=== PATIENT | female | born 1960 | race American Indian/Alaskan Native ===

== ENCOUNTER 2020-07-04 14:38 | Inpatient (IN) | payer SELFPAY ==
--- NOTE | 2020-07-04 15:34 | Emergency Department Report ---
Blank Doc - Documentation Documentation: 59-year-old female that presents with trip and fall with a lac to scalp area. Exam: Cervical spinal tenderness with lac to scalp. This initial assessment/diagnostic orders/clinical plan/treatment(s) is/are subject to change based on patient's health status, clinical progression and re- assessment by fellow clinical providers in the ED. Further treatment and workup at subsequent clinical providers discretion. Patient/guardians urged not to elope from the ED as their condition may be serious if not clinically assessed and managed. Initial orders include: 1- Patient sent to [facility] for further evaluation and treatment 2- CT head/neck 3- cervical collar
--- NOTE | 2020-07-04 16:12 | Cat Scan Report ---
CT head/brain wo con INDICATION: Headache after fall. TECHNIQUE: Routine CT head without contrast. All CT scans at this location are performed using CT dose reduction for ALARA by means of automated exposure control. COMPARISON: None. FINDINGS: BRAIN / INTRACRANIAL CONTENTS: No acute hemorrhage, brain edema, mass effect, or hydrocephalus. Mala l walker-white differentiation. No chronic infarct or focal atrophy. Normal brain volume and ventricula r/sulcal size for age. CALVARIUM/SKULL BASE/CRANIOCERVICAL JUNCTION: No evidence of fracture. ORBITS: No significant abnormality of visualized orbits. SINUSES / MASTOIDS: No significant abnormality of visualized sinuses and mastoid air cells. ADDITIONAL FINDINGS: There is an extrarenal scalp hematoma in the left frontoparietal region. IMPRESSION: 1. No acute post-traumatic intracranial abnormality. Signer Name: Usman Nicole MD Signed: 07/04/2020 4:08 PM Workstation Name: [id number]
--- NOTE | 2020-07-04 16:24 | Cat Scan Report ---
CT CERVICAL SPINE: 07/04/2020 INDICATION / CLINICAL INFORMATION: headache/cervical spine pain s/p fall. COMPARISON: None available. FINDINGS: CT images of the cervical spine were obtained. Images are evaluated in the axial, coronal, and sagitt al planes. There is a fracture of the right lateral mass of the C6 vertebra, and probable fracture line through the right transverse process at C7. These abnormalities are best seen on sagittal images 22-26 and a xial images 41-50. This is associated with slight anterior subluxation of the right C5-6 facet joint, with subtle anterolisthesis present at the C5-6 level in the midline. Vertebral body height is well preserved. Cervical vertebra are otherwise intact. CRANIOCERVICAL JUNCTION: Unremarkable. PARASPINAL STRUCTURES: Unremarkable Incidental note is made of a 2.4 cm right thyroid nodule. IMPRESSION: Right lateral mass fracture at C6 as detailed above. Subtle fracture of right C7 transverse process. INCIDENTAL THYROID NODULE RECOMMENDATIONS Nonpalpable nodules detected on US or other anatomic imaging studies are termed incidentally discover ed nodules or incidentalomas. Nonpalpable nodules have the same risk of malignancy as palpable nodule s with the same size. Generally, only nodules >1 cm should be evaluated, since they have a greater po tential to be clinically significant cancers. (AARON, 2009). Follow up for incidental thyroid nodules <1 cm is not recommended. In patients <35 years with an incidental thyroid nodule detected on CT, MRI, or extrathyroidal ultras ound, dedicated thyroid ultrasound is recommended if the nodule is 1 cm, has no suspicious imaging fe atures, and if the patient has normal life expectancy. In patients 35 years with an incidental thyroid nodule detected on CT, MRI, or extrathyroidal ultraso und, dedicated thyroid ultrasound is recommended if the nodule is 1.5 cm, has no suspicious imaging f eatures, and if the patient has normal life expectancy. All CT scans at this location are performed using dose reduction to ALARA by means of automated expos ure control. Signer Name: Se Paul MD Signed: 07/04/2020 4:20 PM Workstation Name: [id number]
--- NOTE | 2020-07-04 20:26 | Emergency Department Report ---
HPI - General Chief Complaint: Fall Time Seen by Provider: 07/04/20 15:33 - HPI HPI: Room 36 The patient is a 59-year-old female present with a chief complaint of pain after fall. The patient states this morning at 07:30 she missed a step and fell down 6 steps striking her head as she fell to the ground. Patient denies loss of consciousness but complains of pain to the calvarium where she has a laceration neck pain right shoulder and right knee pain. Patient states since she has been in the emergency department she developed some tingling in the right upper extremity but no weakness. ED Past Medical Hx - Past Medical History Previous Medical History?: No - Surgical History Past Surgical History?: No - Family History Family history: no significant - Social History Smoking Status: Never Smoker Substance Use Type: None (Denies illicit drug use) - Medications Home Medications: Home Medications Medication Instructions Recorded Confirmed Last Taken Type Cyclobenzaprine [Flexeril] 10 mg PO TID PRN #15 tablet 04/28/16 Unknown Rx Ibuprofen [Motrin] 800 mg PO Q8HR PRN #15 tablet 04/28/16 Unknown Rx ED Review of Systems ROS: Stated complaint: FALL, OPEN WOUND TO HEAD, NECK AND SHOULDER PAIN Other details as noted in HPI Constitutional: no symptoms reported Eyes: denies: eye pain ENT: denies: throat pain Respiratory: no symptoms reported Cardiovascular: denies: chest pain Endocrine: no symptoms reported Gastrointestinal: denies: abdominal pain Musculoskeletal: arthralgia Skin: other (Laceration to scalp) Neurological: headache Physical Exam - Physical Exam Vital Signs: Vital Signs 07/04/20 15:35 Temperature 98 F Pulse Rate 68 Respiratory 16 Rate Blood Pressure 144/67 [Right] O2 Sat by Pulse 98 Oximetry Physical Exam: GENERAL: The patient is well-developed well-nourished female sitting in chair with cervical collar in place not appearing to be in acute distress HEENT: Normocephalic. Atraumatic. Approximately 3 cm laceration to the calvarium. Hemostatic. Patient has moist mucous membranes. NECK: Supple. No cervical tenderness to palpation CHEST/LUNGS: There is no respiratory distress noted. HEART/CARDIOVASCULAR: Regular. There is no tachycardia. SKIN: There is an approximate 3 cm laceration to the calvarium. Hemostatic. There is no diaphoresis. NEURO: The patient is awake, alert, and oriented. The patient is cooperative. The patient has no focal neurologic deficits. The patient has normal speech. Radial, median and ulnar nerve motor function intact. MUSCULOSKELETAL: There is no evidence of acute injury. ED Course Vital Signs 07/04/20 15:35 Temperature 98 F Pulse Rate 68 Respiratory 16 Rate Blood Pressure 144/67 [Right] O2 Sat by Pulse 98 Oximetry - Consultations Consultation #1: 07/04/20 20:23 Neurosurgery paged ED Medical Decision Making - Lab Data Result diagrams: 07/04/20 20:50 07/04/20 20:50 - Radiology Data Radiology results: pending (CTA neck), report reviewed (CT head, CT cervical spine, bilateral knee x-ray), image reviewed (CT head, CT cervical spine, bilateral knee x-ray) interpreted by me: Bilateral knee x-rays-no acute fractures, no dislocations. No foreign body seen Right shoulder x-ray-no acute fracture, no dislocation. No foreign body seen [facility] [address] [place] [address] Cat Scan Report Signed Patient: ENOC MOSELEY MR#: [id number] : Acct:[id number] Age/Sex: 59 / F ADM Date: 07/04/20 Loc: ED Attending Dr: Ordering Physician: JOSE ERICKSON NP Date of Service: 07/04/20 Procedure(s): CT cervical spine wo con Accession Number(s): [id number] cc: JOSE ERICKSON NP CT CERVICAL SPINE: 07/04/2020 INDICATION / CLINICAL INFORMATION: headache/cervical spine pain s/p fall. COMPARISON: None available. FINDINGS: CT images of the cervical spine were obtained. Images are evaluated in the axial, coronal, and sagittal planes. There is a fracture of the right lateral mass of the C6 vertebra, and probable fracture line through the right transverse process at C7. These abnormalities are best seen on sagittal images 22-26 and axial images 41-50. This is associated with slight anterior subluxation of the right C5-6 facet joint, with subtle anterolisthesis present at the C5-6 level in the midline. Vertebral body height is well preserved. Cervical vertebra are otherwise intact. CRANIOCERVICAL JUNCTION: Unremarkable. PARASPINAL STRUCTURES: Unremarkable Incidental note is made of a 2.4 cm right thyroid nodule. IMPRESSION: Right lateral mass fracture at C6 as detailed above. Subtle fracture of right C7 transverse process. INCIDENTAL THYROID NODULE RECOMMENDATIONS Nonpalpable nodules detected on US or other anatomic imaging studies are termed incidentally discovered nodules or incidentalomas. Nonpalpable nodules have the same risk of malignancy as palpable nodules with the same size. Generally, only nodules >1 cm should be evaluated, since they have a greater potential to be clinically significant cancers. (AARON, 2009). Follow up for incidental thyroid nodules <1 cm is not recommended. In patients <35 years with an incidental thyroid nodule detected on CT, MRI, or extrathyroidal ultrasound, dedicated thyroid ultrasound is recommended if the nodule is 1 cm, has no suspicious andreas ging features, and if the patient has normal life expectancy. In patients 35 years with an incidental thyroid nodule detected on CT, MRI, or extrathyroidal ultrasound, dedicated thyroid ultrasound is recommended if the nodule is 1.5 cm, has no suspicious imaging features, and if the patient has normal life expectancy. All CT scans at this location are performed using dose reduction to ALARA by means of automated exposure control. Signer Name: Se Paul MD Signed: 07/04/2020 4:20 PM Workstation Name: [id number] Transcribed By: AO Dictated By: Se Paul MD Electronically Authenticated By: Se Paul MD Signed Date/Time: 07/04/20 162 DD/ 161 TD/TT: [facility] [address] [place] [address] XRay Report Signed Patient: ENOC MOSELEY MR#: [id number] : 1960 Acct:[id number] Age/Sex: 59 / F ADM Date: 07/04/20 Loc: ED Attending Dr: Ordering Physician: MEME CARRINGTON MD Date of Service: 07/04/20 Procedure(s): XR shoulder 2+V RT Accession Number(s): [id number] cc: MEME CARRINGTON MD Fluoro Time In Minutes: RIGHT SHOULDER 3 VIEW(S) INDICATION / CLINICAL INFORMATION: MAIN COMPARISON: None available. FINDINGS: BONES / JOINT(S): Double density along the humeral head with slight cortical step off at the inferomedial humeral head. Acute nondisplaced fracture not excluded. Consider further evaluation as warranted. Moderate degenerative change. No dislocation. SOFT TISSUES: No significant abnormality. ADDITIONAL FINDINGS: None. Signer Name: Stacia Harrison MD Signed: 07/04/2020 9:47 PM Workstation Name: [id number] Transcribed By: Dictated By: STACIA HARRISON III Electronically Authenticated By: STACIA HARRISON III Signed Date/Time: 07/04/202146 DD/ 45 TD/TT: [facility] [address] [place] [address] XRay Report Signed Patient: ENOC MOSELEY MR#: [id number] : 1960 Acct:[id number] Age/Sex: 59 / F ADM Date: 07/04/20 Loc: ED Attending Dr: Ordering Physician: MEME CARRINGTON MD Date of Service: 07/04/20 Procedure(s): XR knee BILAT 1-2V Accession Number(s): [id number] cc: MEME CARRINGTON MD Fluoro Time In Minutes: BILATERAL KNEE 4 VIEW(S) INDICATION / CLINICAL INFORMATION: MAIN COMPARISON: None available. FINDINGS: BONES / JOINT(S): No acute fracture or subluxation. Tricompartmental degenerative change, bilaterally. Marginal osteophytosis and mild joint space narrowing. No significant effusion in either knee. SOFT TISSUES: No significant abnormality. ADDITIONAL FINDINGS: None. Signer Name: Stacia Harrison MD Signed: 07/04/2020 9:48 PM Workstation Name: [id number] Transcribed By: Dictated By: STACIA HARRISON III Electronically Authenticated By: STACIA HARRISON III Signed Date/Time: 07/04/202147 DD/ 46 TD/TT: - Differential Diagnosis Cervical fracture Critical care attestation.: If time is entered above; I have spent that time in minutes in the direct care of this critically ill patient, excluding procedure time. ED Disposition Clinical Impression: Cervical vertebral fracture, Scalp laceration Disposition: OP ADMIT IP TO THIS HOSP Is pt being admited?: Yes Does the pt Need Aspirin: No Condition: Stable Referrals: PRIMARY CARE, [Primary Care Provider] - 3-5 Days Time of Disposition: 22:47 (Hospitalist notified (Dr Ibarra))
[2020-07-04] MEDS ORDERED: DIPHtheria,PERTUSSIS(ACELL),TETANUS VACCINE/PF 0.5 ML VIAL IM ONE (20:46)
[2020-07-04] MEDS ORDERED: ONDANSETRON 4 MG/2 ML INJ IV ONE (20:46)
[2020-07-04] MEDS ORDERED: fentaNYL 100 MCG/2 ML INJ IV ONE (20:46)
[2020-07-04 21:10] LABS: Basophils # (Auto) 0.1 K/mm3 (0.0-0.1); Basophils % (Auto) 1.1 % (0.0-1.8); Eosinophils # (Auto) 0.1 K/mm3 (0.0-0.4); Eosinophils % (Auto) 0.6 % (0.0-4.3); Hematocrit 39.3 % (30.3-42.9); Hemoglobin 12.9 gm/dl (10.1-14.3); Lymphocytes # (Auto) 2.7 K/mm3 (1.2-5.4); Mean Corpuscular HGB Conc 33 % (30-34); Mean Corpuscular Volume 96 fl (79-97); Monocytes # (Auto) 0.7 K/mm3 (0.0-0.8); Platelet Count 233 K/mm3 (140-440); Red Blood Count 4.09 M/mm3 (3.65-5.03); Red Cell Distribution Width 13.6 % (13.2-15.2)
[2020-07-04 21:21] LABS: Blood Urea Nitrogen 13 mg/dL (7-17); Calcium 9.6 mg/dL (8.4-10.2); Hemolysis Index 80
[2020-07-04 21:22] LABS: INR 0.95 (0.87-1.13)
[2020-07-04 21:23] LABS: Partial Thromboplastin Time 26.8 Sec. (24.2-36.6)
[2020-07-04 21:24] LABS: BUN/Creatinine Ratio 22
--- NOTE | 2020-07-04 21:51 | XRay Report ---
RIGHT SHOULDER 3 VIEW(S) INDICATION / CLINICAL INFORMATION: MAIN COMPARISON: None available. FINDINGS: BONES / JOINT(S): Double density along the humeral head with slight cortical step off at the inferome dial humeral head. Acute nondisplaced fracture not excluded. Consider further evaluation as warranted . Moderate degenerative change. No dislocation. SOFT TISSUES: No significant abnormality. ADDITIONAL FINDINGS: None. Signer Name: Edgardo Harrison MD Signed: 07/04/2020 9:47 PM Workstation Name: [id number]
--- NOTE | 2020-07-04 21:53 | XRay Report ---
BILATERAL KNEE 4 VIEW(S) INDICATION / CLINICAL INFORMATION: MAIN COMPARISON: None available. FINDINGS: BONES / JOINT(S): No acute fracture or subluxation. Tricompartmental degenerative change, bilaterally . Marginal osteophytosis and mild joint space narrowing. No significant effusion in either knee. SOFT TISSUES: No significant abnormality. ADDITIONAL FINDINGS: None. Signer Name: Edgardo Harrison MD Signed: 07/04/2020 9:48 PM Workstation Name: [id number]
--- NOTE | 2020-07-04 22:57 | Cat Scan Report ---
CT angio neck HISTORY: Cervical fractures COMPARISON: CT cervical spine 07/04/2020. TECHNIQUE: Routine CTA of the neck is performed. 3-D/MIP reformats were postprocessed. Percentage st enosis is determined by direct quantitative measurements of diseased internal carotid artery diameter compared with normal distal internal carotid artery reference segments or by criteria similar to BRAULIO CET where applicable. All CT scans at this location are performed using CT dose reduction for ALARA b y means of automated exposure control. FINDINGS: Aortic arch: No significant abnormality. Cervical vertebral arteries: There is traumatic occlusion of the right proximal V1 segment vertebral artery with reconstitution in the V2 segment from collateral circulation. Then more distally there is irregularity involving the right V3 segment with only a string of contrast seen progressing into the normal caliber right V4 segment. The dissection extends approximately to the level of the right PICA branch which remains patent. Left vertebral artery is patent. Common Carotid arteries: No occlusion or hemodynamically significant stenosis. Internal carotid arteries: No occlusion or hemodynamically significant stenosis. Additional findings: 2 cm right mid pole thyroid nodule. Please see recent prior reports recommendati ons. Patient has known cervical spine fractures. IMPRESSION: 1. Traumatic occlusion of the proximal right vertebral artery with reconstitution of the mid vertebra l artery. However, there is irregularity consistent with dissection in the V3 segment to the level of a patent right posterior inferior cerebellar artery. 2. Known cervical fractures. Signer Name: Jayson Guidry MD Signed: 07/04/2020 10:52 PM Workstation Name: [id number]
--- NOTE | 2020-07-04 23:13 | XRay Report ---
XR chest 1V ap INDICATION / CLINICAL INFORMATION: Preop COMPARISON: None available. FINDINGS: SUPPORT DEVICES: None. HEART / MEDIASTINUM: No significant abnormality. LUNGS / PLEURA: Lungs are clear. Costophrenic sulci are sharp. No pneumothorax. ADDITIONAL FINDINGS: No significant additional findings. IMPRESSION: 1. No significant cardiothoracic abnormality. Signer Name: Jayson Guidry MD Signed: 07/04/2020 11:09 PM Workstation Name: [id number]
[2020-07-05] MEDS ORDERED: MAGNESIUM HYDROXIDE (MOM) ORAL LIQD UDC PO PRN (00:04)
[2020-07-05] MEDS ORDERED: ACETAMINOPHEN 325 MG TAB PO PRN (00:04)
[2020-07-05] MEDS ORDERED: SODIUM CHLORIDE 0.9% 1000 ML 1,000 ML IV SCH (00:15)
--- NOTE | 2020-07-05 00:15 | History and Physical Report ---
History of Present Illness Date of examination: 07/04/20 Date of admission: 07/04/20 22:48 Chief complaint: Neck Pain S/P Fall History of present illness: 59-year-old -Swedish female with no significant past medical history presents to the emergency room today complaining of head and neck pain after having a fall earlier this morning. Patient states that she missed a step on the staircase and fell them about 3 staircases hitting her head while falling to the ground. She denies any loss of consciousness. However since being in the emergency room she indicates that she has had some right upper extremity tingling sensation. She denies any weakness, she denies any urinary or fecal incontinence. She denies any blurry vision, no chest pain or shortness of breath, no nausea vomiting, no abdominal pain, no hematuria or dysuria. Work-up in the emergency room today CT of the cervical spine shows some fractures on C6 and C7. Neurosurgeon Dr. Lubin has been consulted. Patient is to have MRI of the cervical spine and will be followed up for possible surgery in the a.m. Past History Past Medical History: No medical history Past Surgical History: No surgical history Social history: no significant social history Family history: no significant family history Medications and Allergies Allergies Allergy/AdvReac Type Severity Reaction Status Date / Time aspirin AdvReac Unknown Verified 07/05/20 00:11 Home Medications Medication Instructions Recorded Confirmed Last Taken Type No Known Home Medications [No 07/05/20 07/05/20 Unknown History Reported Home Medications] Active Meds: Active Medications Acetaminophen (Acetaminophen 325 Mg Tab) 650 mg PO Q4H PRN PRN Reason: Pain MILD(1-3)/Fever >100.5/CHANG Sodium Chloride (Nacl 0.9% 1000 Ml) 1,000 mls @ 75 mls/hr IV DIRECT LYN Magnesium Hydroxide (Magnesium Hydroxide (Mom) Oral Liqd Udc) 30 ml PO Q4H PRN PRN Reason: Constipation Morphine Sulfate (Morphine 2 Mg/1 Ml Inj) 2 mg IV Q4H PRN PRN Reason: Pain, Moderate (4-6) Ondansetron HCl (Ondansetron 4 Mg/2 Ml Inj) 4 mg IV Q8H PRN PRN Reason: Nausea And Vomiting Sodium Chloride (Sodium Chloride 0.9% 10 Ml Flush Syringe) 10 ml IV BID LYN Sodium Chloride (Sodium Chloride 0.9% 10 Ml Flush Syringe) 10 ml IV PRN PRN PRN Reason: LINE FLUSH Review of Systems Constitutional: no fever, no chills Ears, nose, mouth and throat: no nasal discharge, no swelling in mouth, no swelling in throat Cardiovascular: no chest pain, no orthopnea, no palpitations Respiratory: no cough, no shortness of breath Gastrointestinal: no abdominal pain, no nausea, no vomiting, no diarrhea Genitourinary Female: no pelvic pain, no flank pain, no dysuria, no hematuria Musculoskeletal: neck pain, arm numbness/tingling, no low back pain Integumentary: no rash, no pruritis Neurological: no headaches, no confusion Psychiatric: no anxiety, no depression Exam - Constitutional Vitals: Temp Pulse Resp BP Pulse Ox 98 F 68 16 144/67 98 07/04/20 15:35 07/04/20 15:35 07/04/20 15:35 07/04/20 15:35 07/04/20 15:35 General appearance: Present: no acute distress, well-nourished, other (Neck: Place) - EENT Eyes: Present: PERRL, EOM intact. Absent: scleral icterus ENT: hearing intact, clear oral mucosa, dentition normal - Neck Neck: Present: supple, normal ROM - Respiratory Respiratory effort: normal Respiratory: bilateral: CTA - Cardiovascular Rhythm: regular Heart Sounds: Present: S1 & S2. Absent: gallop, rub - Extremities Extremities: no ischemia, pulses intact, pulses symmetrical, No edema, normal temperature, normal color, Full ROM Peripheral Pulses: within normal limits - Abdominal General gastrointestinal: Present: soft, non-tender, non-distended, normal bowel sounds. Absent: mass - Psychiatric Psychiatric: appropriate mood/affect, intact judgment & insight - Neurologic Neurologic: CNII-XII intact, no focal deficits, moves all extremities Results - Labs CBC & Chem 7: 07/04/20 20:50 07/04/20 20:50 Labs: Abnormal lab results 07/04/20 Range/Units 20:50 Glucose 109 H (65-100) mg/dL Assessment and Plan - Patient Problems (1) Cervical vertebral fracture Current Visit: Yes Status: Acute Plan to address problem: Status post fall. Consult placed to neurosurgeon for evaluation. She has developed some tingling sensation in the right upper extremity during t he course of her stay in the ER. Awaiting MRI of the cervical spine as recommended by the neurosurgeon. (2) Fall Current Visit: Yes Status: Acute Plan to address problem: Patient will be placed on fall precautions. (3) Scalp laceration Current Visit: Yes Status: Acute Plan to address problem: Laceration has been sutured and and dressed in the ER. Patient has also been given the tetanus injection. (4) DVT prophylaxis Current Visit: Yes Status: Acute Plan to address problem: Patient placed on sequential compression device. (5) Full code status Current Visit: Yes Status: Acute Plan to address problem: Patient is a full code.
[2020-07-05] MEDS: ONDANSETRON 4 MG/2 ML INJ IV PRN ×2 (05:46→12:00)
[2020-07-05] MEDS: MORPHINE 2 MG/1 ML INJ IV PRN ×3 (05:46→19:08)
--- NOTE | 2020-07-05 09:57 | Consultation ---
History of Present Illness Consult date: 07/05/20 Reason for Consult: Cervical fracture Chief complaint: Fall down stairs History of present illness: Fannie Calix is a 59 y/o Female that was brought to [facility] ER last night after a fall down a flight of stairs. She admits to striking her head but did not lose consciousness. A CT C spine was performed upon arrival, demonstrating a right C6 lateral mass fracture. There is also a fracture involving the R C7 transverse process. Follow up CTA revealed R vertebral artery dissection. NSGY consulted for further management. She reports R arm numbness and tingling, extending from her shoulder to the elbow. She denies weakness, loss of bowel/bladder function. Past History Past Medical History: No medical history Past Surgical History: No surgical history Social history: no significant social history Family history: no significant family history Medications and Allergies Allergies Allergy/AdvReac Type Severity Reaction Status Date / Time aspirin AdvReac Unknown Verified 07/05/20 00:11 Home Medications Medication Instructions Recorded Confirmed Last Taken Type No Known Home Medications [No 07/05/20 07/05/20 Unknown History Reported Home Medications] Active Meds: Active Medications Acetaminophen (Acetaminophen 325 Mg Tab) 650 mg PO Q4H PRN PRN Reason: Pain MILD(1-3)/Fever >100.5/CHANG Sodium Chloride (Nacl 0.9% 1000 Ml) 1,000 mls @ 75 mls/hr IV DIRECT LYN Magnesium Hydroxide (Magnesium Hydroxide (Mom) Oral Liqd Udc) 30 ml PO Q4H PRN PRN Reason: Constipation Morphine Sulfate (Morphine 2 Mg/1 Ml Inj) 2 mg IV Q4H PRN PRN Reason: Pain, Moderate (4-6) Last Admin: 07/05/20 05:46 Dose: 2 mg Documented by: Ondansetron HCl (Ondansetron 4 Mg/2 Ml Inj) 4 mg IV Q8H PRN PRN Reason: Nausea And Vomiting Last Admin: 07/05/20 05:46 Dose: 4 mg Documented by: Sodium Chloride (Sodium Chloride 0.9% 10 Ml Flush Syringe) 10 ml IV BID LYN Sodium Chloride (Sodium Chloride 0.9% 10 Ml Flush Syringe) 10 ml IV PRN PRN PRN Reason: LINE FLUSH Physical Examination - Vital Signs Vital Signs: Vital Signs Temp Pulse Resp BP Pulse Ox 98 F 68 16 144/67 98 07/04/20 15:35 07/04/20 15:35 07/04/20 15:35 07/04/20 15:35 07/04/20 15:35 - Physical Exam Narrative exam: seen and examined c-collar present no acute distress NC/AT RRR breathing non-labored abdomen soft no cyanosis or clubbing A&Ox3 CNII-XII Intact motor strength full throughout sensation intact reflexes +2 Results - Laboratory Findings CBC and BMP: 07/04/20 20:50 07/04/20 20:50 Abnormal Lab Findings: Abnormal Labs 07/04/20 20:50 Glucose 109 H Assessment and Plan 59 y/o F w/ R C6 lateral mass fx, vertebral artery dissection -maintain cervical collar at all times -MRI C spine without contrast -please start ASA 81 mg for vertebral artery dissection -surgical candidacy to be determined pending MRI -please notify if questions
--- NOTE | 2020-07-05 12:56 | Progress Note ---
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 07/05/2019. Continue cervical collar at all times per neurosurgery recommendations. Follow-up MRI C-spine without contrast. Start aspirin 81 mg f or vertebral artery dissection. Surgical candidacy to be determined pending MRI History Interval history: No new issues overnight Hospitalist Physical - Constitutional Vitals: Temp Pulse Resp BP Pulse Ox 98.1 F 79 16 141/82 97 07/05/20 11:58 07/05/20 11:58 07/05/20 11:58 07/05/20 11:58 07/05/20 11:58 General appearance: Present: no acute distress, well-nourished, other (Neck: Place) - EENT Eyes: Present: PERRL, EOM intact ENT: hearing intact, clear oral mucosa, dentition normal - Neck Neck: Present: supple, normal ROM - Respiratory Respiratory effort: normal Respiratory: bilateral: CTA - Cardiovascular Rhythm: regular Heart Sounds: Present: S1 & S2. Absent: gallop, rub - Extremities Extremities: no ischemia, No edema, Full ROM - Abdominal General gastrointestinal: soft, non-tender, non-distended, normal bowel sounds - Integumentary Integumentary: Present: clear, warm, dry - Neurologic Neurologic: CNII-XII intact, moves all extremities Results - Labs CBC & Chem 7: 07/04/20 20:50 07/04/20 20:50 Labs: Laboratory Last Values WBC 9.8 K/mm3 (4.5-11.0) 07/04/20 20:50 RBC 4.09 M/mm3 (3.65-5.03) 07/04/20 20:50 Hgb 12.9 gm/dl (10.1-14.3) 07/04/20 20:50 Hct 39.3 % (30.3-42.9) 07/04/20 20:50 MCV 96 fl (79-97) 07/04/20 20:50 MCH 32 pg (28-32) 07/04/20 20:50 MCHC 33 % (30-34) 07/04/20 20:50 RDW 13.6 % (13.2-15.2) 07/04/20 20:50 Plt Count 233 K/mm3 (140-440) 07/04/20 20:50 Lymph % (Auto) 28.0 % (13.4-35.0) 07/04/20 20:50 [place] % (Auto) 7.0 % (0.0-7.3) 07/04/20 20:50 Eos % (Auto) 0.6 % (0.0-4.3) 07/04/20 20:50 Baso % (Auto) 1.1 % (0.0-1.8) 07/04/20 20:50 Lymph # (Auto) 2.7 K/mm3 (1.2-5.4) 07/04/20 20:50 [place] # (Auto) 0.7 K/mm3 (0.0-0.8) 07/04/20 20:50 Eos # (Auto) 0.1 K/mm3 (0.0-0.4) 07/04/20 20:50 Baso # (Auto) 0.1 K/mm3 (0.0-0.1) 07/04/20 20:50 Seg Neutrophils % 63.3 % (40.0-70.0) 07/04/20 20:50 Seg Neutrophils # 6.2 K/mm3 (1.8-7.7) 07/04/20 20:50 PT 12.5 Sec. (12.2-14.9) 07/04/20 20:50 INR 0.95 (0.87-1.13) 07/04/20 20:50 APTT 26.8 Sec. (24.2-36.6) 07/04/20 20:50 Sodium 141 mmol/L (137-145) 07/04/20 20:50 Potassium 4.2 mmol/L (3.6-5.0) 07/04/20 20:50 Chloride 103.1 mmol/L (98-107) 07/04/20 20:50 Carbon Dioxide 27 mmol/L (22-30) 07/04/20 20:50 Anion Gap 15 mmol/L 07/04/20 20:50 BUN 13 mg/dL (7-17) 07/04/20 20:50 Creatinine 0.6 mg/dL (0.6-1.2) 07/04/20 20:50 Estimated GFR > 60 ml/min 07/04/20 20:50 BUN/Creatinine Ratio 22 % 07/04/20 20:50 Glucose 109 mg/dL (65-100) H 07/04/20 20:50 Calcium 9.6 mg/dL (8.4-10.2) 07/04/20 20:50 Blood Type B POSITIVE 07/04/20 20:50 Antibody Screen Negative 07/04/20 20:50 Bourgeois/IV: IV Catheter Type [Right INT / Saline Lock Antecubital] Active Medications - Current Medications Current Medications: Generic Name Dose Route Start Last Admin Trade Name Freq PRN Reason Stop Dose Admin Acetaminophen 650 mg 07/05/20 00:04 Acetaminophen 325 Mg Tab PO Q4H PRN Pain MILD(1-3)/Fever >100.5/CHANG Sodium Chloride 1,000 mls @ 75 mls/hr 07/05/20 00:15 Nacl 0.9% 1000 Ml IV DIRECT LYN Magnesium Hydroxide 30 ml 07/05/20 00:04 Magnesium Hydroxide (Mom) Oral Liqd Udc PO Q4H PRN Constipation Morphine Sulfate 2 mg 07/05/20 00:04 07/05/20 11:55 Morphine 2 Mg/1 Ml Inj IV 2 mg Q4H PRN Administration Pain, Moderate (4-6) Ondansetron HCl 4 mg 07/05/20 00:04 07/05/20 12:00 Ondansetron 4 Mg/2 Ml Inj IV 4 mg Q8H PRN Administration Nausea And Vomiting Sodium Chloride 10 ml 07/05/20 10:00 07/05/20 10:25 Sodium Chloride 0.9% 10 Ml Flush Syringe IV 10 ml BID LYN Administration Sodium Chloride 10 ml 07/05/20 00:04 Sodium Chloride 0.9% 10 Ml Flush Syringe IV PRN PRN LINE FLUSH
--- NOTE | 2020-07-05 16:55 | Magnetic Resonance Report ---
MR cervical spine wo con INDICATION / CLINICAL INFORMATION: 59 years Female; C-SPINE FRACTURE. TECHNIQUE: Multisequence, multiplanar images of the cervical spine were obtained. COMPARISON: None available. FINDINGS: CRANIOCERVICAL JUNCTION:No significant abnormality. ALIGNMENT: There is slight anterolisthesis at C5-6 which correlates with the earlier CT of 07/04/2020 a nd may be related to the fracture involving the right articular facet and proximal right transverse p rocess. The cervical spine otherwise appears to demonstrate appropriate alignment. VERTEBRAE:There is associated mild edema involving right articular facet and transverse process of C6 at. Additionally, this mild edema within the adjacent right soft tissues at. There is no significant edema of the cervical vertebral bodies. VISUALIZED SPINAL CORD: The motion degrades the image quality. However, the cervical spinal cord appe ars to demonstrate appropriate signal intensity on the combination of sequences. [id number] ANALYSIS: C2-3: No significant abnormality. C3-4: The broad-based disc bulge appears to minimally flatten the ventral cord at. There is mild left neural foraminal narrowing. C4-5: There is a broad-based central disco bulge and annular tear which slightly flattens the ventral cord at. There appears be mild right neural foraminal narrowing. C5-6: There is a left-sided disc protrusion and annular tear which slightly flattens the left ventral cord. Additionally, there appears be mild foraminal narrowing bilaterally. C6-7: There is a central disc bulge and annular tear which effaces the subarachnoid space with slight flattening of the ventral cord. There is mild left neural foraminal narrowing. C7-T1: There is no disc protrusion or significant spinal stenosis. PARASPINAL SOFT TISSUES: There appears be mild fluid signal within the prevertebral soft tissues on t he right extending from the C6 at level related to fracture. ADDITIONAL FINDINGS: No epidural collections are identified. There is absence of flow void within the visualized right vertebral artery which correlates with the occlusion on the CTA neck of 07/04/2020. IMPRESSION: 1. The findings correlate with the earlier CT demonstrating fracture of the right articular facet of C6 with slight anterolisthesis at C5-6 as detailed above. There is associated edema in this region. 2. There is absence of flow void within the right vertebral artery compatible with occlusion and the CTA findings of 07/04/2020. 3. There are multilevel degenerative the changes with broad-based disc bulges and neural foraminal na rrowing as detailed above. Signer Name: Frandy Lindquist MD Signed: 07/05/2020 4:50 PM Workstation Name: [id number]
--- NOTE | 2020-07-05 21:34 | Progress Note ---
Assessment and Plan 59 y/o F w/ R C6 lateral mass fracture, Vertebral artery dissection -cont ASA 81 mg daily for vert dissection -cont aspen collar at all times -will arrange for 1 week follow up in clinic with ap/lateral c spine xrays -patient may discharge from NSGY standpoint -please notify if questions Subjective Date of service: 07/05/20 Interval history: MRI Reviewed: demonstrates aforementioned R C6 lateral mass fracture. There is a mild disc herniation at C5-6 w/ small annular tear. There is no gross disruption of the ALL, PLL, ligamentum flavum, or interspinous ligament. There is no significant foraminal stenosis. Objective - Vital Sign Vital Signs - 12hr 07/05/20 07/05/20 07/05/20 09:31 09:45 10:01 Temperature Pulse Rate 69 62 63 Respiratory 13 14 14 Rate Blood Pressure 144/86 144/86 188/87 Blood Pressure [Right] O2 Sat by Pulse 94 94 96 Oximetry 07/05/20 07/05/20 07/05/20 10:15 10:31 10:37 Temperature Pulse Rate 69 65 Respiratory 9 L 17 Rate Blood Pressure 188/87 139/82 Blood Pressure 139/82 [Right] O2 Sat by Pulse 98 96 97 Oximetry 07/05/20 07/05/20 07/05/20 10:45 11:00 11:15 Temperature Pulse Rate Respiratory Rate Blood Pressure 139/82 141/82 188/87 Blood Pressure [Right] O2 Sat by Pulse 97 98 95 Oximetry 07/05/20 07/05/20 07/05/20 11:31 11:45 11:58 Temperature 98.1 F Pulse Rate 79 Respiratory 16 Rate Blood Pressure 188/87 188/87 Blood Pressure 141/82 [Right] O2 Sat by Pulse 98 98 97 Oximetry 07/05/20 07/05/20 07/05/20 15:35 15:44 17:25 Temperature 98.3 F Pulse Rate 82 67 Respiratory 19 15 Rate Blood Pressure 137/64 Blood Pressure 138/72 143/81 [Right] O2 Sat by Pulse 97 97 Oximetry 07/05/20 07/05/20 07/05/20 17:31 17:47 18:00 Temperature Pulse Rate Respiratory Rate Blood Pressure 137/64 137/64 144/70 Blood Pressure [Right] O2 Sat by Pulse 98 98 97 Oximetry 01/11/1807/05/20 07/05/20 18:15 18:31 18:45 Temperature Pulse Rate Respiratory Rate Blood Pressure 144/70 144/70 144/70 Blood Pressure [Right] O2 Sat by Pulse 95 97 72 L Oximetry 07/05/20 07/05/20 07/05/20 19:00 19:15 19:31 Temperature Pulse Rate Respiratory Rate Blood Pressure 136/71 136/71 136/71 Blood Pressure [Right] O2 Sat by Pulse 98 98 100 Oximetry - Laboratory Findings CBC and BMP: 07/04/20 20:50 07/04/20 20:50 Abnormal Lab Findings: Abnormal Labs 07/04/20 20:50 Glucose 109 H
[2020-07-06] MEDS: MORPHINE 2 MG/1 ML INJ IV PRN ×2 (00:38→08:58)
--- NOTE | 2020-07-06 09:30 | Progress Note ---
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 07/05/2019. Continue cervical collar at all times per neurosurgery recommendations. Follow-up MRI C-spine without contrast. Start aspirin 81 mg f or vertebral artery dissection. Surgical candidacy to be determined pending MRI. 07/06/2019. MRI demonstrates aforementioned R C6 lateral mass fracture. There is a mild disc herniation at C5-6 w/ small annular tear. There is no gross disruption of the ALL, PLL, ligamentum flavum, or interspinous ligament. There is no significant foraminal stenosis. Continue aspirin per neurosurgery recommendations. Continue aspirin collar at all times. Patient may discharge per neurosurgery recommendations. History Interval history: No new issues overnight Hospitalist Physical - Constitutional Vitals: Temp Pulse Resp BP Pulse Ox 99.0 F 71 18 146/79 96 07/06/20 03:44 07/06/20 03:44 07/06/20 03:44 07/06/20 03:44 07/06/20 03:44 General appearance: Present: no acute distress, well-nourished, other (Neck: Place) - EENT Eyes: Present: PERRL, EOM intact ENT: hearing intact, clear oral mucosa, dentition normal - Neck Neck: Present: supple, normal ROM - Respiratory Respiratory effort: normal Respiratory: bilateral: CTA - Cardiovascular Rhythm: regular Heart Sounds: Present: S1 & S2. Absent: gallop, rub - Extremities Extremities: no ischemia, No edema, Full ROM - Abdominal General gastrointestinal: soft, non-tender, non-distended, normal bowel sounds - Integumentary Integumentary: Present: clear, warm, dry - Neurologic Neurologic: CNII-XII intact, moves all extremities Results - Labs CBC & Chem 7: 07/04/20 20:50 07/04/20 20:50 Labs: Laboratory Last Values WBC 9.8 K/mm3 (4.5-11.0) 07/04/20 20:50 RBC 4.09 M/mm3 (3.65-5.03) 07/04/20 20:50 Hgb 12.9 gm/dl (10.1-14.3) 07/04/20 20:50 Hct 39.3 % (30.3-42.9) 07/04/20 20:50 MCV 96 fl (79-97) 07/04/20 20:50 MCH 32 pg (28-32) 07/04/20 20:50 MCHC 33 % (30-34) 07/04/20 20:50 RDW 13.6 % (13.2-15.2) 07/04/20 20:50 Plt Count 233 K/mm3 (140-440) 07/04/20 20:50 Lymph % (Auto) 28.0 % (13.4-35.0) 07/04/20 20:50 [place] % (Auto) 7.0 % (0.0-7.3) 07/04/20 20:50 Eos % (Auto) 0.6 % (0.0-4.3) 07/04/20 20:50 Baso % (Auto) 1.1 % (0.0-1.8) 07/04/20 20:50 Lymph # (Auto) 2.7 K/mm3 (1.2-5.4) 07/04/20 20:50 [place] # (Auto) 0.7 K/mm3 (0.0-0.8) 07/04/20 20:50 Eos # (Auto) 0.1 K/mm3 (0.0-0.4) 07/04/20 20:50 Baso # (Auto) 0.1 K/mm3 (0.0-0.1) 07/04/20 20:50 Seg Neutrophils % 63.3 % (40.0-70.0) 07/04/20 20:50 Seg Neutrophils # 6.2 K/mm3 (1.8-7.7) 07/04/20 20:50 PT 12.5 Sec. (12.2-14.9) 07/04/20 20:50 INR 0.95 (0.87-1.13) 07/04/20 20:50 APTT 26.8 Sec. (24.2-36.6) 07/04/20 20:50 Sodium 141 mmol/L (137-145) 07/04/20 20:50 Potassium 4.2 mmol/L (3.6-5.0) 07/04/20 20:50 Chloride 103.1 mmol/L (98-107) 07/04/20 20:50 Carbon Dioxide 27 mmol/L (22-30) 07/04/20 20:50 Anion Gap 15 mmol/L 07/04/20 20:50 BUN 13 mg/dL (7-17) 07/04/20 20:50 Creatinine 0.6 mg/dL (0.6-1.2) 07/04/20 20:50 Estimated GFR > 60 ml/min 07/04/20 20:50 BUN/Creatinine Ratio 22 % 07/04/20 20:50 Glucose 109 mg/dL (65-100) H 07/04/20 20:50 Calcium 9.6 mg/dL (8.4-10.2) 07/04/20 20:50 Blood Type B POSITIVE 07/04/20 20:50 Antibody Screen Negative 07/04/20 20:50 Bourgeois/IV: Voiding Method Toilet IV Catheter Type [Right INT / Saline Lock Antecubital] Active Medications - Current Medications Current Medications: Generic Name Dose Route Start Last Admin Trade Name Freq PRN Reason Stop Dose Admin Acetaminophen 650 mg 07/05/20 00:04 Acetaminophen 325 Mg Tab PO Q4H PRN Pain MILD(1-3)/Fever >100.5/CHANG Aspirin 81 mg 07/06/20 10:00 Aspirin Ec 81 Mg Tab PO QDAY LYN Sodium Chloride 1,000 mls @ 75 mls/hr 07/05/20 00:15 Nacl 0.9% 1000 Ml IV DIRECT LYN Magnesium Hydroxide 30 ml 07/05/20 00:04 Magnesium Hydroxide (Mom) Oral Liqd Udc PO Q4H PRN Constipation Morphine Sulfate 2 mg 07/05/20 00:04 07/06/20 08:58 Morphine 2 Mg/1 Ml Inj IV 2 mg Q4H PRN Administration Pain, Moderate (4-6) Ondansetron HCl 4 mg 07/05/20 00:04 07/05/20 12:00 Ondansetron 4 Mg/2 Ml Inj IV 4 mg Q8H PRN Administration Nausea And Vomiting Sodium Chloride 10 ml 07/05/20 10:00 07/06/20 00:38 Sodium Chloride 0.9% 10 Ml Flush Syringe IV 10 ml BID LYN Administration Sodium Chloride 10 ml 07/05/20 00:04 07/06/20 08:58 Sodium Chloride 0.9% 10 Ml Flush Syringe IV 10 ml PRN PRN Administration LINE FLUSH
--- NOTE | 2020-07-06 09:36 | Discharge Summary ---
Providers - Providers Date of Admission: 07/04/20 22:48 Date of discharge: 07/06/20 Attending physician: ARABELLA HEARN 07/04/20 20:39 Consult to Physician [CONS] Urgent Comment: Consulting Provider: ANDRES LUEVANO II Physician Instructions: Reason For Exam: Cervical fracture 07/05/20 08:18 Consult to Physician [CONS] Routine Comment: Consulting Provider: STACIA MCHUGH Physician Instructions: Reason For Exam: cervical fracture 07/05/20 08:19 Consult to Physician [CONS] Routine Comment: Consulting Provider: ANDRES LUEVANO II Physician Instructions: Reason For Exam: cervicle fracture Primary care physician: UNISAW OPERATOR Hospitalization Reason for admission: neck pain, fall Condition: Stable Hospital course: 59-year-old -[place] female with no significant past medical history presents to the emergency room today complaining of head and neck pain after having a fall the morning [employer]. Patient stated that she missed a step on the staircase and fell them about 3 stairs hitting her head while falling to the ground. She denies any loss of consciousness. After arrival in the emergency room, she indicated that she has had some right upper extremity tingling sensation. Work-up in the emergency room today CT of the cervical spine shows some fractures on C6 and C7. The patient was admitted with diagnosis ofR C6 lateral mass fracture and vertebral artery dissection. Neurosurgeon Dr. Lubin has been consulted. Hospital course: 07/05/2019. Continue cervical collar at all times per neurosurgery recommendations. Follow-up MRI C-spine without contrast. Start aspirin 81 mg for vertebral artery dissection. Surgical candidacy to be determined pending MRI. 07/06/2019. MRI demonstrates aforementioned R C6 lateral mass fracture. There is a mild disc herniation at C5-6 w/ small annular tear. There is no gross disruption of the ALL, PLL, ligamentum flavum, or interspinous ligament. There is no significant foraminal stenosis. Continue aspirin per neurosurgery recommendations. Continue aspirin collar at all times. Patient may discharge per neurosurgery recommendations. Patient is felt to have received maximal hospital benefit and will be discharged home. I spoke with Dr. Luevano who will arrange for prescription for [place] cervical collar. Dedicated discharge time 35 minutes Disposition: - TO HOME OR SELFCARE Time spent for discharge: 35 - Discharge Diagnoses (1) Vertebral artery dissection Status: Acute (2) Cervical vertebral fracture Status: Acute (3) Fall Status: Acute (4) Scalp laceration Status: Acute Core Measure Documentation - Palliative Care Palliative Care/ Comfort Measures: Not Applicable - Core Measures Any of the following diagnoses?: none Exam - Constitutional Vitals: Temp Pulse Resp BP Pulse Ox 99.0 F 71 18 146/79 96 07/06/20 03:44 07/06/20 03:44 07/06/20 03:44 07/06/20 03:44 07/06/20 03:44 General appearance: Present: no acute distress, well-nourished - EENT Eyes: Present: PERRL ENT: hearing intact, clear oral mucosa - Neck Neck: Present: other ([place] cervical collar) - Respiratory Respiratory effort: normal Respiratory: bilateral: CTA - Cardiovascular Heart Sounds: Present: S1 & S2. Absent: rub, click - Extremities Extremities: pulses symmetrical, No edema Peripheral Pulses: within normal limits - Abdominal General gastrointestinal: Present: soft, non-tender, non-distended, normal bowel sounds Female genitourinary: Present: normal - Integumentary Integumentary: Present: clear, warm, dry - Musculoskeletal Musculoskeletal: gait normal, strength equal bilaterally - Psychiatric Psychiatric: appropriate mood/affect, intact judgment & insight - Neurologic Neurologic: CNII-XII intact, moves all extremities Plan Activity: advance as tolerated Weight Bearing Status: Weight Bear as Tolerated Diet: regular Durable Medical Equipment Needed Upon Discharge: other ([place] cervical collar) Additional Instructions: Arrange for [place] collar through Dr. Luevano office Follow up with: PRIMARY CARE, [Primary Care Provider] - 3-5 Days Prescriptions: Aspirin EC [Halfprin EC] 81 mg PO QDAY #30 tablet oxyCODONE /ACETAMINOPHEN [Percocet 5/325] 1 tab PO Q4HR #10 tab
[2020-07-06 09:47] VITALS: BP 142/73
[2020-07-06] MEDS ORDERED: ASPIRIN EC 81 MG TAB PO SCH (10:00)
== END 2020-07-06 16:57 | disposition home or self-care (01) | DRG 552 ==
LOC: ED 14:38 → 4A 22:48
PROVIDERS: ADMIT Internal Medicine Geriatric Medicine; ATTEND Hospitalist
PROC: 0HQ0XZZ Repair Scalp Skin, External Approach (ICD-10-PCS; principal; 2020-07-04)
DX: S12.500A Unspecified displaced fracture of sixth cervical vertebra, initial encounter for closed fracture (principal); S01.01XA Laceration without foreign body of scalp, initial encounter; W01.0XXA Fall on same level from slipping, tripping and stumbling without subsequent striking against object, initial encounter; Y93.89 Activity, other specified; Y92.89 Other specified places as the place of occurrence of the external cause; Z23 Encounter for immunization; Y99.8 Other external cause status; Z79.899 Other long term (current) drug therapy; Z79.891 Long term (current) use of opiate analgesic; Z79.01 Long term (current) use of anticoagulants; Z88.8 Allergy status to other drugs, medicaments and biological substances
CPT/HCPCS: 36415; 70450; 70498; 71045; 72125; 72141; 80048; 85025; 85610; 85730; 86850; 86900; 86901; 90715; 93005; G0378; J2270; J2405; J3010; Q9967